=== PATIENT | male | born 1950 | race Hispanic/Latino ===

== ENCOUNTER → 2020-01-19 | Outpatient (CLI) | payer OTHER ==
[~2020-01-19] MED LIST: AMLO-258 PO; ASPI-1443 PO; CILO100T PO; CLOP75TA14 PO; COSO10OS OU; GLIP5TAB11 PO; INSU100V37 SQ; INSU3INS3 SQ; LATA2.5D15 OU; LOSA100T58 PO; SIMV-43 PO
== END | disposition home or self-care (01) ==
LOC: RAH 12:55
PROVIDERS: ATTEND Internal Medicine Cardiovascular Disease
DX: Z13.6 Encounter for screening for cardiovascular disorders (principal)
CPT/HCPCS: 75571

== ENCOUNTER → 2020-01-19 | Outpatient (CLI) | payer MEDICARE | END | disposition home or self-care (01) | LOC: SHCH 12:55 | PROVIDERS: ATTEND Internal Medicine Cardiovascular Disease | DX: R09.89 Other specified symptoms and signs involving the circulatory and respiratory systems (principal) | CPT/HCPCS: 93880; 93925 ==

== ENCOUNTER → 2020-01-20 | Outpatient (CLI) | payer MEDICARE ==
[~2020-01-20] MED LIST changes: -AMLO-258 PO; -ASPI-1443 PO; -INSU100V37 SQ
== END | disposition home or self-care (01) ==
LOC: SHCH 08:37
PROVIDERS: ATTEND Internal Medicine Cardiovascular Disease
DX: I11.9 Hypertensive heart disease without heart failure (principal); R01.1 Cardiac murmur, unspecified
CPT/HCPCS: 93306; 93356

== ENCOUNTER → 2020-02-11 | Outpatient (CLI) | payer MEDICARE ==
[~2020-02-11] MED LIST changes: +IOHEXOL-350 50ML VIAL IV ONE; +IOHEXOL-350 75 ML VIAL IV ONE
== END | disposition home or self-care (01) ==
LOC: RAH 07:50
PROVIDERS: ATTEND Internal Medicine Cardiovascular Disease
DX: I70.0 Atherosclerosis of aorta (principal); I70.209 Unspecified atherosclerosis of native arteries of extremities, unspecified extremity; N40.0 Benign prostatic hyperplasia without lower urinary tract symptoms; K57.30 Diverticulosis of large intestine without perforation or abscess without bleeding; M25.78 Osteophyte, vertebrae
CPT/HCPCS: 75635; Q9967 ×2

== ENCOUNTER 2020-07-04 09:47 | Day surgery (SDC) | payer MEDICARE ==
[2020-06-30 10:08] LABS: BASOPHILS % (AUTO) 0.8 % (0.0-5.0); HEMATOCRIT 43.8 % (42-54); LYMPHOCYTES % (AUTO) 21.8 % (21.0-51.0); MEAN CORPUSCULAR HEMOGLOBIN 30.6 pg (27.0-33.0); MEAN CORPUSCULAR HGB CONC 34.7 g/dL (32.0-36.0); MEAN CORPUSCULAR VOLUME 88.1 fL (79-99); MONOCYTES % (AUTO) 8.1 % (3.0-13.0); NEUTROPHILS % (AUTO) 64.7 % (40.0-77.0); PLATELET COUNT (AUTO) 200 K/uL (130-400); RED BLOOD CELL COUNT(AUTO) 4.97 MIL/uL (4.50-6.20); WHITE BLOOD COUNT (AUTO) 7.3 K/uL (4.8-10.8)
[2020-06-30 10:11] LABS: APPEARANCE,URINE Clear (CLEAR); BILIRUBIN,URINE Negative (NEGATIVE); COLOR,URINE Yellow (YELLOW); GLUCOSE, URINE (UA) 500 mg/dL (NEGATIVE); KETONES,URINE Negative (NEGATIVE); LEUKOCYTE ESTERASE ,URINE Negative (NEGATIVE); NITRATE,URINE Negative (NEGATIVE); OCCULT BLOOD,URINE Negative (NEGATIVE); PROTEIN,URINE Trace mg/dL (NEGATIVE)
[2020-06-30 10:17] LABS: CREATININE 0.8 mg/dL (0.5-1.5); POTASSIUM 3.3 mmol/L (3.5-5.1)
[2020-06-30 10:19] LABS: INR 0.92 (0.85-1.15); PARTIAL THROMBOPLASTIN TIME 27.3 SEC (26.3-35.5)
[2020-06-30 10:40] LABS: BACTERIA,URINE None Seen /HPF (None Seen); RBC,URINE 0-1 /HPF (0-1); WBC,URINE None Seen /HPF (0-1)
[2020-06-30 10:41] LABS: SQUAMOUS EPITHELIAL CELL,UR 0-2 /HPF (0-2)
--- NOTE | 2020-07-03 10:04 | NUR ---
LAB ABNORMAL K+ REPORTED TO BABITA MAYORGA, FURTHER ORDERS GIVEN AND WILL BE CARRIED OUT
[~2020-07-04] VITALS: Ht 163.8 cm; Wt 73.3 kg
[2020-07-04] VITALS (9 sets, daily range): BP systolic 106–149; BP diastolic 54–70
[~2020-07-04 09:47] MED LIST changes: +ACETAMINOPHEN 325 MG TAB PO PRN; +AMLO-258 PO; +ASPI-1443 PO; -COSO10OS OU; +INSU100V37 SQ; -INSU3INS3 SQ; -IOHEXOL-350 50ML VIAL IV ONE; -IOHEXOL-350 75 ML VIAL IV ONE; -LATA2.5D15 OU; +SODIUM CHLORIDE 0.9% 500ML 500 ML IV SCH
[2020-07-04 10:40] LABS: CREATININE 0.9 mg/dL (0.5-1.5); POTASSIUM 3.7 mmol/L (3.5-5.1)
[2020-07-04] MEDS ORDERED: SODIUM CHLORIDE 0.9% 1000ML 1,000 ML IV ONE (11:35)
[2020-07-04] MEDS ORDERED: IOHEXOL 350 MG/ML 100ML INFUS..BTL IV ONE (14:09)
[2020-07-04] MEDS ORDERED: SODIUM BICARB 50MEQ 50ML VIAL 50 ML ONE (14:09)
[2020-07-04] MEDS ORDERED: IOHEXOL-350 50ML VIAL IV ONE ×2 (14:09→15:01)
[2020-07-04] MEDS ORDERED: NITROGLYCERIN 2 MG/VIAL VIAL IV ONE (14:09)
[2020-07-04] MEDS ORDERED: IOHEXOL-350 75 ML VIAL IV ONE (14:09)
[2020-07-04] MEDS ORDERED: HEPARIN SODIUM 1000UNIT/ML 10ML VIAL ONE (14:09)
[2020-07-04] MEDS ORDERED: LIDOCAINE HCL 2% 20ML ONE (14:10)
[2020-07-04] MEDS ORDERED: MIDAZOLAM HCL 1 MG/ML 2ML VIAL ONE (14:10)
[2020-07-04] MEDS ORDERED: MEPERIDINE-PF 25 MG/ML SYG ONE (14:10)
[2020-07-04] MEDS ORDERED: DiphenhydrAMINE HCL 50 MG/ML VIAL ONE (15:16)
[2020-07-04] MEDS ORDERED: LABETALOL HCL 5 MG/ML 20ML VIAL IV ONE (15:22)
[2020-07-04] MEDS ORDERED: DEXTROSE 50%-WATER 50 ML DISP.SYRIN IV PRN (16:00)
[2020-07-04] MEDS ORDERED: SODIUM CHLORIDE 0.9% 1000ML 1,000 ML IV SCH (16:00)
[2020-07-04] MEDS ORDERED: GLUCAGON 1MG KIT 1 MG ML IM PRN (16:00)
[2020-07-04] MEDS ORDERED: INSULIN HUMULIN R 100 UNIT/ML 3ML SQ SCH (16:30)
--- NOTE | 2020-07-04 18:30 | NUR ---
Pt taken up to room 329. Report called to LAURIE Higgins from 3rd floor to give report. Pt awake, alert, and oriented upon arrival. Care rendered over to nurse at bedside. Pt resting comfortably, denies any pain or nausea. Site to right cath site remains, soft, non-tender, dressing clean dry and intact. Pt denies any further questions at this time. Discharge instructions given to pt prior to taking pt upstairs, pt reports understanding.
== END 2020-07-04 22:04 | disposition home or self-care (01) ==
LOC: DAH 09:47
PROVIDERS: ATTEND Internal Medicine Cardiovascular Disease
DX: I25.10 Atherosclerotic heart disease of native coronary artery without angina pectoris (principal); E11.51 Type 2 diabetes mellitus with diabetic peripheral angiopathy without gangrene; I10 Essential (primary) hypertension; E78.5 Hyperlipidemia, unspecified; F17.200 Nicotine dependence, unspecified, uncomplicated; Z79.82 Long term (current) use of aspirin; Z79.01 Long term (current) use of anticoagulants; Z79.899 Other long term (current) drug therapy
CPT/HCPCS: 36415 ×2; 71045; 80048 ×2; 81001; 82948 ×2; 85025; 85610; 85730; 93005; 93458; A4215; A4216; A4221; A4222; A4223 ×2; A4606; A4663; C1760; C1894; J1200; J1644; J1815; J3490 ×4; J7030; Q9965; Q9967 ×3; 99156; 99157; J2175; J2250

== ENCOUNTER → 2020-07-27 | Outpatient (CLI) | payer MEDICARE ==
[~2020-07-27] VITALS: Ht 165.1 cm; Wt 72.5 kg
[~2020-07-27] MED LIST changes: -ACETAMINOPHEN 325 MG TAB PO PRN; +ASPI-891 PO; +CEFUROXIME SODIUM 1.5 GM VIAL IVP SCH; +DORZ10DR10 OU; +FURO20TA6 PO; +LATA7.5D OU; +METO-408 PO; +METO25 PO; -SODIUM CHLORIDE 0.9% 500ML 500 ML IV SCH
[2020-07-27 12:39] LABS: BASOPHILS % (AUTO) 0.9 % (0.0-5.0); EOSINOPHILS % (AUTO) 4.1 % (0.0-8.0); HEMATOCRIT 49.1 % (42-54); LYMPHOCYTES % (AUTO) 22.8 % (21.0-51.0); MEAN CORPUSCULAR HEMOGLOBIN 30.3 pg (27.0-33.0); MEAN CORPUSCULAR HGB CONC 34.2 g/dL (32.0-36.0); MEAN CORPUSCULAR VOLUME 88.6 fL (79-99); MONOCYTES % (AUTO) 6.8 % (3.0-13.0); NEUTROPHILS % (AUTO) 64.7 % (40.0-77.0); PLATELET COUNT (AUTO) 211 K/uL (130-400); RED BLOOD CELL COUNT(AUTO) 5.54 MIL/uL (4.50-6.20); RED CELL DISTRIBUTION WIDTH 11.9 % (11.0-15.5); WHITE BLOOD COUNT (AUTO) 6.9 K/uL (4.8-10.8)
[2020-07-27 12:46] LABS: CREATININE 0.8 mg/dL (0.5-1.5); POTASSIUM 3.7 mmol/L (3.5-5.1)
[2020-07-27 13:21] LABS: INR 0.93 (0.85-1.15); PARTIAL THROMBOPLASTIN TIME 26.9 SEC (26.3-35.5); PROTHROMBIN TIME 10.1 SEC (9.6-11.6)
[2020-07-31 14:58] VITALS: BP 169/74
--- NOTE | 2020-07-31 15:03 | NUR ---
RE: ABNORMAL LABS INFORMED SHWETA GARSIA RN/DR SMITH REGARDING ABNORMAL LABS (HGB A1C 9.0, GLUCOSE 216). PER SHWETA, PATIENT IS NOT HAVING SURGERY TOMORROW.
== END | disposition home or self-care (01) ==
LOC: DAH 10:00 → EDSTATUS 08-16 11:00
PROVIDERS: ATTEND Thoracic Surgery (Cardiothoracic Vascular Surgery)
DX: Z01.818 Encounter for other preprocedural examination (principal); Z20.828 Contact with and (suspected) exposure to other viral communicable diseases; I65.21 Occlusion and stenosis of right carotid artery; I70.0 Atherosclerosis of aorta; Z79.899 Other long term (current) drug therapy
CPT/HCPCS: 36415; 71046; 80048; 83036; 85025; 85610; 85730; 86850; 86900; 86901; 93005; 93880; 94060; U0003; 94010

== ENCOUNTER 2020-08-11 14:00 | Inpatient (IN) | payer MEDICARE ==
[~2020-08-11] VITALS: Ht 162.6 cm; Wt 68.9 kg
[~2020-08-11 14:00] MED LIST changes: -ASPI-891 PO; -CEFUROXIME SODIUM 1.5 GM VIAL IVP SCH; -DORZ10DR10 OU; -FURO20TA6 PO; -LATA7.5D OU; -METO-408 PO; -METO25 PO
[2020-08-11 15:01] LABS: BASOPHILS % (AUTO) 0.9 % (0.0-5.0); EOSINOPHILS % (AUTO) 3.6 % (0.0-8.0); HEMATOCRIT 45.2 % (42-54); MEAN CORPUSCULAR HEMOGLOBIN 30.4 pg (27.0-33.0); MEAN CORPUSCULAR VOLUME 86.9 fL (79-99); MONOCYTES % (AUTO) 8.4 % (3.0-13.0); NEUTROPHILS % (AUTO) 62.7 % (40.0-77.0); PLATELET COUNT (AUTO) 206 K/uL (130-400); RED CELL DISTRIBUTION WIDTH 11.7 % (11.0-15.5); WHITE BLOOD COUNT (AUTO) 6.9 K/uL (4.8-10.8)
[2020-08-11 15:11] LABS: INR 0.93 (0.85-1.15); PARTIAL THROMBOPLASTIN TIME 26.3 SEC (26.3-35.5); PROTHROMBIN TIME 10.1 SEC (9.6-11.6)
[2020-08-11 15:14] LABS: ALBUMIN 3.9 g/dL (3.5-5.0); CREATININE 0.8 mg/dL (0.5-1.5); POTASSIUM 3.8 mmol/L (3.5-5.1); TOTAL PROTEIN, SERUM 8.5 g/dL (6.0-8.3)
[2020-08-11 15:17] LABS: HEMOGLOBIN A1C 8.7 % (4.0-6.0)
[2020-08-11 15:24] LABS: B-TYPE NATRIURETIC PEPTIDE 15 pg/mL (0-100)
[2020-08-15] MEDS ORDERED: LATA7.5D OU (11:01)
[2020-08-15] MEDS ORDERED: DORZ10DR10 OU (11:01)
[2020-08-15] MEDS ORDERED: METO-408 PO (11:20)
[2020-08-15 11:39] VITALS: BP 148/76
[2020-08-16] VITALS (11 sets, daily range): BP systolic 92–169; BP diastolic 45–84
[2020-08-16] MEDS ORDERED: SODIUM CHLORIDE 0.9% 1000ML 1,000 ML IV ONE ×2 (09:36→14:51)
[2020-08-16] MEDS ORDERED: NOREPINEPHRINE BITARTRATE 8 MG in DEXTROSE 5%-WATER 250 ML IV PRN (10:00)
[2020-08-16] MEDS ORDERED: EPINEPHRINE 10 MG in SODIUM CHLORIDE 0.9% 240 ML IV PRN (10:00)
[2020-08-16] MEDS ORDERED: AMINOCAPROIC ACID 15,000 MG in SODIUM CHLORIDE 0.9% 500ML 420 ML IV PRN (10:00)
[2020-08-16] MEDS ORDERED: NITROGLYCERIN 50 MG/D5% WATER 1 BOT ONE (10:05)
[2020-08-16] MEDS ORDERED: PAPAVERINE HCL 30 MG/ML 2ML VIAL ONE (10:06)
[2020-08-16] MEDS ORDERED: CEFAZOLIN SODIUM 1 GM VIAL ONE (10:06)
[2020-08-16] MEDS: CEFAZOLIN SODIUM 1 GM VIAL IVP SCH ×2 (10:15→12:00)
[2020-08-16] MEDS ORDERED: LIDOCAINE PF 2% 5ML ABBOJECT ONE (11:34)
[2020-08-16] MEDS ORDERED: PROTAMINE SULFATE 10 MG/ML 25ML VIAL IV ONE (11:34)
[2020-08-16] MEDS ORDERED: HEPARIN SODIUM 1000UNIT/ML 10ML VIAL ONE ×2 (11:34→13:01)
[2020-08-16] MEDS ORDERED: ESMOLOL HCL 10 MG/ML 10 ML VIAL ONE (11:34)
[2020-08-16] MEDS ORDERED: FENTANYL CITRATE PF 50 MCG/1 ML 20ML VIAL IJ ONE (11:35)
[2020-08-16] MEDS ORDERED: ROCURONIUM 10MG/1ML SYR 10 MG/ML ML ONE ×2 (11:35→13:41)
[2020-08-16] MEDS ORDERED: NOREPINEPHRINE BITARTRATE 1 MG/1 ML ML IV ONE (11:35)
[2020-08-16] MEDS ORDERED: AMINOCAPROIC ACID 250 MG/ML 20 ML VIAL ONE (11:35)
[2020-08-16] MEDS ORDERED: ETOMIDATE 2 MG/ML 10 ML VIAL ONE (11:35)
[2020-08-16] MEDS ORDERED: EPINEPHRINE 1 MG/ML AMPULE ONE (11:35)
[2020-08-16] MEDS ORDERED: SODIUM BICARB 50MEQ 50ML VIAL 100 ML ONE (11:35)
[2020-08-16] MEDS ORDERED: MIDAZOLAM HCL 1 MG/ML 2ML VIAL ONE (11:35)
[2020-08-16] MEDS ORDERED: VASOPRESSIN 20 UNITS/ML 1ML VIAL ONE (12:05)
[2020-08-16] MEDS ORDERED: AMIODARONE HCL 50 MG/ML 3 ML VIAL ONE (12:05)
[2020-08-16 12:41] LABS: ABG BASE EXCESS -6.4 mmol/L (-2.0-3.0); ABG HCO3 19.6 mmol/L (21.0-28.0); ABG OXYGEN SATURATION 99.3 % (95.0-99.0); ABG PCO2 41 mmHg (35-48)
[2020-08-16] MEDS ORDERED: SODIUM BICARB 50MEQ 50ML VIAL 200 ML ONE (12:45)
[2020-08-16] MEDS ORDERED: GLYCOPYRROLATE 1 MG/5 ML SYRINGE ONE (13:27)
[2020-08-16 13:32] LABS: ABG BASE EXCESS 0.6 mmol/L (-2.0-3.0); ABG PCO2 35 mmHg (35-48)
[2020-08-16] MEDS ORDERED: POTASSIUM CHLORIDE 20MEQ/100ML 300 ML IV ONE (13:33)
[2020-08-16] MEDS ORDERED: INSULIN HUMULIN R 100 UNIT/ML 3ML ONE (13:36)
[2020-08-16] MEDS ORDERED: SODIUM BICARB 8.4% 50ML SYRINGE ONE (13:57)
[2020-08-16] MEDS ORDERED: ALBUMIN (HUMAN) 5% 500 ML IV ONE (14:23)
[2020-08-16] MEDS ORDERED: PROTAMINE SULFATE 10 MG/ML 5 ML VIAL ONE ×2 (14:23→14:48)
[2020-08-16] MEDS ORDERED: NOREPINEPHRINE 4MG/NS 250ML 250 ML IV PRN (14:45)
[2020-08-16] MEDS ORDERED: ALBUMIN (HUMAN) 5% 250 ML IV PRN (14:45)
[2020-08-16] MEDS ORDERED: NITROGLYCERIN 50 MG/D5% WATER 250 BOT IV SCH (14:45)
[2020-08-16] MEDS ORDERED: ONDANSETRON HCL 4 MG/2 ML VIAL IV PRN (14:45)
[2020-08-16] MEDS ORDERED: AMINOCAPROIC ACID 15,000 MG in SODIUM CHLORIDE 0.9% 250 ML IV SCH (14:45)
[2020-08-16] MEDS ORDERED: SODIUM CHLORIDE 0.9% 500ML 500 ML IV SCH (14:45)
[2020-08-16] MEDS ORDERED: SODIUM BICARB 50MEQ 50ML VIAL IV PRN (14:45)
[2020-08-16] MEDS ORDERED: MORPHINE SULFATE 2 MG/ML 1ML SYG IV PRN (14:45)
[2020-08-16] MEDS ORDERED: SODIUM CHLORIDE 0.9% 10 ML VIAL IVP PRN (14:45)
[2020-08-16] MEDS ORDERED: SODIUM CHLORIDE 0.9% 1000ML 1,000 ML IV SCH (14:45)
[2020-08-16] MEDS ORDERED: PROPOFOL 1000 MG/100 ML 100 ML IV PRN (14:45)
[2020-08-16] MEDS ORDERED: CALCIUM GLUCONATE 1 GM in SODIUM CHLORIDE 0.9% 50 ML IV PRN (14:45)
[2020-08-16] MEDS ORDERED: EPINEPHRINE 2 MG in DEXTROSE 5%-WATER 250 ML IV PRN (14:45)
[2020-08-16] MEDS ORDERED: DEXTROSE 50%-WATER 50 ML DISP.SYRIN IV PRN (14:45)
[2020-08-16] MEDS ORDERED: POTASSIUM PHOS 15 mMOL+NS250ML 250 ML IV PRN (14:45)
[2020-08-16] MEDS ORDERED: GLUCAGON 1MG KIT 1 MG ML IM PRN (14:45)
[2020-08-16] MEDS ORDERED: ACETAMINOPHEN 650 MG SUPPOSITORY RC PRN (14:45)
[2020-08-16] MEDS ORDERED: MORPHINE SULFATE 4 MG/1ML SYG IV PRN (14:45)
[2020-08-16] MEDS ORDERED: ACETAMINOPHEN 325 MG TAB PO PRN (14:45)
[2020-08-16 14:48] LABS: ABG BASE EXCESS -1.3 mmol/L (-2.0-3.0); ABG HCO3 21.8 mmol/L (21.0-28.0); ABG OXYGEN SATURATION 98.9 % (95.0-99.0); ABG PCO2 32 mmHg (35-48)
[2020-08-16] MEDS: INSULIN REGULAR, HUMAN 3ML 100 UNIT in SODIUM CHLORIDE 0.9% 99 ML IV SCH ×2 (15:45)
[2020-08-16 15:49] LABS: ABG BASE EXCESS 0.3 mmol/L (-2.0-3.0); ABG HCO3 24.5 mmol/L (21.0-28.0); ABG OXYGEN SATURATION 98.4 % (95.0-99.0); ABG PCO2 38 mmHg (35-48)
[2020-08-16 15:51] LABS: MEAN CORPUSCULAR HEMOGLOBIN 30.8 pg (27.0-33.0); MEAN CORPUSCULAR HGB CONC 35.3 g/dL (32.0-36.0); MEAN CORPUSCULAR VOLUME 87.4 fL (79-99); RED BLOOD CELL COUNT(AUTO) 4.12 MIL/uL (4.50-6.20); RED CELL DISTRIBUTION WIDTH 11.9 % (11.0-15.5); WHITE BLOOD COUNT (AUTO) 18.7 K/uL (4.8-10.8)
[2020-08-16] MEDS: POTASSIUM CHLORIDE 20MEQ/100ML 100 ML IV PRN ×4 (15:53→22:15)
[2020-08-16 16:05] LABS: INR 1.07 (0.85-1.15); PARTIAL THROMBOPLASTIN TIME 20.5 SEC (26.3-35.5); PROTHROMBIN TIME 11.5 SEC (9.6-11.6)
[2020-08-16 16:07] LABS: CREATININE 0.8 mg/dL (0.5-1.5); MAGNESIUM 1.3 mg/dL (1.80-2.40); PHOSPHORUS 3.5 mg/dL (2.5-4.9); POTASSIUM 3.5 mmol/L (3.5-5.1)
[2020-08-16] MEDS: MAGNESIUM 2GM PREMIX 50ML 50 ML IV PRN (16:51)
[2020-08-16 17:03] LABS: ABG BASE EXCESS -2.8 mmol/L (-2.0-3.0); ABG HCO3 21.8 mmol/L (21.0-28.0); ABG OXYGEN SATURATION 97.9 % (95.0-99.0); ABG PCO2 37 mmHg (35-48)
[2020-08-16] MEDS: TRAMADOL HCL 50 MG TABLET PO PRN ×2 (17:24→23:52)
[2020-08-16 18:19] LABS: ABG BASE EXCESS -1.2 mmol/L (-2.0-3.0); ABG HCO3 24.4 mmol/L (21.0-28.0); ABG OXYGEN SATURATION 97.3 % (95.0-99.0); ABG PCO2 44 mmHg (35-48)
[2020-08-16] MEDS ORDERED: KETOROLAC TROMETHAMINE 15MG/ML IV SCH (18:45)
[2020-08-16] MEDS: CEFAZOLIN SODIUM 1 GM VIAL IV SCH (19:33)
[2020-08-16] MEDS ORDERED: SODIUM BICARB 50MEQ 50ML VIAL IV STA (19:34)
[2020-08-16] MEDS: CILOSTAZOL 100 MG TAB PO SCH (20:11)
[2020-08-16] MEDS: SIMVASTATIN 20 MG TABLET PO SCH (20:11)
[2020-08-16] MEDS: DORZOLAMIDE HCL/TIMOLOL MALEAT DROPS 10 ML BOTTLE OU SCH (20:12)
[2020-08-16] MEDS: LATANOPROST 2.5 ML DROPS OU SCH (20:16)
[2020-08-16] MEDS ORDERED: FAMOTIDINE/PF 20 MG/2 ML VIAL IV SCH (21:00)
[2020-08-16 21:10] LABS: ABG BASE EXCESS -0.1 mmol/L (-2.0-3.0); ABG HCO3 24.2 mmol/L (21.0-28.0); ABG OXYGEN SATURATION 98.1 % (95.0-99.0); ABG PCO2 38 mmHg (35-48)
[2020-08-17] VITALS (26 sets, daily range): BP systolic 100–145; BP diastolic 46–75
[2020-08-17] MEDS: CEFAZOLIN SODIUM 1 GM VIAL IV SCH ×2 (03:30→11:08)
[2020-08-17 04:13] LABS: ABG BASE EXCESS -0.1 mmol/L (-2.0-3.0); ABG HCO3 25.7 mmol/L (21.0-28.0); ABG OXYGEN SATURATION 97.7 % (95.0-99.0); ABG PCO2 46 mmHg (35-48)
[2020-08-17 04:59] LABS: HEMATOCRIT 33.7 % (42-54); MEAN CORPUSCULAR HEMOGLOBIN 30.1 pg (27.0-33.0); MEAN CORPUSCULAR HGB CONC 33.5 g/dL (32.0-36.0); MEAN CORPUSCULAR VOLUME 89.6 fL (79-99); RED BLOOD CELL COUNT(AUTO) 3.76 MIL/uL (4.50-6.20); RED CELL DISTRIBUTION WIDTH 12.2 % (11.0-15.5); WHITE BLOOD COUNT (AUTO) 9.5 K/uL (4.8-10.8)
[2020-08-17 05:09] LABS: INR 1.02 (0.85-1.15)
[2020-08-17 05:12] LABS: CREATININE 0.7 mg/dL (0.5-1.5); MAGNESIUM 1.6 mg/dL (1.80-2.40); PHOSPHORUS 4.4 mg/dL (2.5-4.9); POTASSIUM 4.1 mmol/L (3.5-5.1)
[2020-08-17] MEDS: MAGNESIUM 2GM PREMIX 50ML 50 ML IV PRN (05:34)
[2020-08-17] MEDS: FAMOTIDINE 20MG TAB 20 MG TAB PO SCH ×2 (09:51→20:26)
[2020-08-17] MEDS: CILOSTAZOL 100 MG TAB PO SCH ×2 (09:51→20:26)
[2020-08-17] MEDS: ASPIRIN 325MG EC TAB 325 MG TABLET.DR PO SCH (09:52)
[2020-08-17] MEDS: FUROSEMIDE 10 MG/ML 2ML VIAL IV SCH ×2 (09:53→20:29)
[2020-08-17] MEDS: DORZOLAMIDE HCL/TIMOLOL MALEAT DROPS 10 ML BOTTLE OU SCH ×2 (09:53→20:31)
[2020-08-17] MEDS: SIMVASTATIN 20 MG TABLET PO SCH (20:27)
[2020-08-17] MEDS: LATANOPROST 2.5 ML DROPS OU SCH (20:31)
[2020-08-17] MEDS: TRAMADOL HCL 50 MG TABLET PO PRN (20:48)
[2020-08-18] VITALS (15 sets, daily range): BP systolic 94–155; BP diastolic 37–81
[2020-08-18 04:45] LABS: CREATININE 0.7 mg/dL (0.5-1.5); POTASSIUM 3.5 mmol/L (3.5-5.1)
[2020-08-18 04:58] LABS: HEMATOCRIT 31.9 % (42-54); MEAN CORPUSCULAR HEMOGLOBIN 30.6 pg (27.0-33.0); MEAN CORPUSCULAR HGB CONC 33.9 g/dL (32.0-36.0); MEAN CORPUSCULAR VOLUME 90.4 fL (79-99); RED BLOOD CELL COUNT(AUTO) 3.53 MIL/uL (4.50-6.20); RED CELL DISTRIBUTION WIDTH 12.2 % (11.0-15.5); WHITE BLOOD COUNT (AUTO) 12.3 K/uL (4.8-10.8)
[2020-08-18] MEDS: INSULIN REGULAR, HUMAN 3ML 100 UNIT in SODIUM CHLORIDE 0.9% 99 ML IV SCH ×2 (05:14)
[2020-08-18] MEDS: TRAMADOL HCL 50 MG TABLET PO PRN ×2 (05:25→21:54)
[2020-08-18] MEDS: POTASSIUM CHLORIDE 20MEQ/100ML 100 ML IV PRN ×2 (06:22→09:02)
[2020-08-18] MEDS: FUROSEMIDE 20 MG TABLET PO SCH ×2 (08:18→16:43)
[2020-08-18] MEDS: DORZOLAMIDE HCL/TIMOLOL MALEAT DROPS 10 ML BOTTLE OU SCH ×2 (08:18→21:54)
[2020-08-18] MEDS: ASPIRIN 325MG EC TAB 325 MG TABLET.DR PO SCH (08:18)
[2020-08-18] MEDS: FAMOTIDINE 20MG TAB 20 MG TAB PO SCH ×2 (08:18→21:52)
[2020-08-18] MEDS: CILOSTAZOL 100 MG TAB PO SCH ×2 (08:22→21:52)
[2020-08-18] MEDS ORDERED: METOPROLOL TARTRATE 25 MG TAB PO SCH (09:00)
[2020-08-18] MEDS: LOSARTAN 50 MG TABLET PO SCH (13:35)
[2020-08-18] MEDS: INSULIN HUMULIN R 100 UNIT/ML 3ML SQ SCH ×2 (16:47→21:59)
[2020-08-18] MEDS: LATANOPROST 2.5 ML DROPS OU SCH (21:52)
[2020-08-18] MEDS: METOPROLOL TARTRATE 25 MG TAB PO SCH (21:55)
[2020-08-18] MEDS: SIMVASTATIN 20 MG TABLET PO SCH (21:55)
[2020-08-18] MEDS: ATORVASTATIN CALCIUM 20 MG TABLET PO SCH (21:55)
[2020-08-19] VITALS (7 sets, daily range): BP systolic 117–144; BP diastolic 49–78
[2020-08-19 04:12] LABS: MEAN CORPUSCULAR HEMOGLOBIN 30.1 pg (27.0-33.0); MEAN CORPUSCULAR HGB CONC 33.9 g/dL (32.0-36.0); MEAN CORPUSCULAR VOLUME 88.8 fL (79-99); RED BLOOD CELL COUNT(AUTO) 3.49 MIL/uL (4.50-6.20); RED CELL DISTRIBUTION WIDTH 11.8 % (11.0-15.5); WHITE BLOOD COUNT (AUTO) 11.1 K/uL (4.8-10.8)
[2020-08-19 04:25] LABS: CREATININE 0.8 mg/dL (0.5-1.5); MAGNESIUM 2.2 mg/dL (1.80-2.40); POTASSIUM 3.7 mmol/L (3.5-5.1)
[2020-08-19] MEDS ORDERED: LIDOCAINE HCL-MPF 2% 5ML VIAL IM SCH (07:30)
[2020-08-19] MEDS: INSULIN HUMULIN R 100 UNIT/ML 3ML SQ SCH ×4 (07:30→20:50)
[2020-08-19] MEDS: ENOXAPARIN SODIUM 30 MG/0.3 ML SQ SCH (09:00)
[2020-08-19] MEDS: DORZOLAMIDE HCL/TIMOLOL MALEAT DROPS 10 ML BOTTLE OU SCH ×2 (09:00→20:56)
[2020-08-19] MEDS: ASPIRIN 325MG EC TAB 325 MG TABLET.DR PO SCH (09:57)
[2020-08-19] MEDS: CILOSTAZOL 100 MG TAB PO SCH ×2 (09:57→20:48)
[2020-08-19] MEDS: FUROSEMIDE 20 MG TABLET PO SCH ×2 (09:58→17:19)
[2020-08-19] MEDS: METOPROLOL TARTRATE 25 MG TAB PO SCH ×2 (09:58→20:48)
[2020-08-19] MEDS: LOSARTAN 50 MG TABLET PO SCH (09:58)
[2020-08-19] MEDS: FAMOTIDINE 20MG TAB 20 MG TAB PO SCH ×2 (09:59→20:48)
[2020-08-19] MEDS: SIMVASTATIN 20 MG TABLET PO SCH (20:48)
[2020-08-19] MEDS: ATORVASTATIN CALCIUM 20 MG TABLET PO SCH (20:48)
[2020-08-19] MEDS: LATANOPROST 2.5 ML DROPS OU SCH (20:56)
[2020-08-20 04:16] VITALS: BP 112/56
[2020-08-20 05:59] LABS: MEAN CORPUSCULAR HEMOGLOBIN 30.5 pg (27.0-33.0); MEAN CORPUSCULAR HGB CONC 34.4 g/dL (32.0-36.0); MEAN CORPUSCULAR VOLUME 88.6 fL (79-99); RED BLOOD CELL COUNT(AUTO) 3.61 MIL/uL (4.50-6.20); RED CELL DISTRIBUTION WIDTH 11.6 % (11.0-15.5); WHITE BLOOD COUNT (AUTO) 7.7 K/uL (4.8-10.8)
[2020-08-20 06:09] LABS: CREATININE 0.8 mg/dL (0.5-1.5); POTASSIUM 3.3 mmol/L (3.5-5.1)
[2020-08-20] MEDS: INSULIN HUMULIN R 100 UNIT/ML 3ML SQ SCH ×4 (06:16→20:47)
[2020-08-20] MEDS: ASPIRIN 325MG EC TAB 325 MG TABLET.DR PO SCH (07:31)
[2020-08-20] MEDS: FUROSEMIDE 20 MG TABLET PO SCH ×2 (07:31→16:09)
[2020-08-20] MEDS: CILOSTAZOL 100 MG TAB PO SCH ×2 (07:31→20:44)
[2020-08-20] MEDS: METOPROLOL TARTRATE 25 MG TAB PO SCH ×2 (07:32→20:44)
[2020-08-20] MEDS: LOSARTAN 50 MG TABLET PO SCH (07:32)
[2020-08-20] MEDS: FAMOTIDINE 20MG TAB 20 MG TAB PO SCH ×2 (07:32→20:44)
[2020-08-20] MEDS: ENOXAPARIN SODIUM 30 MG/0.3 ML SQ SCH (07:39)
[2020-08-20 07:55] VITALS: BP 124/62
[2020-08-20] MEDS: DORZOLAMIDE HCL/TIMOLOL MALEAT DROPS 10 ML BOTTLE OU SCH ×2 (09:00→20:54)
[2020-08-20 11:27] VITALS: BP 103/54
[2020-08-20] MEDS ORDERED: POTASSIUM CHLORIDE 20MEQ/100ML 100 ML IV PRN (12:15)
[2020-08-20] MEDS ORDERED: POTASSIUM CHLORIDE 10% ELIXIR 20 MEQ/15 ML UDCUP PO PRN (12:15)
[2020-08-20] MEDS ORDERED: LIDOCAINE HCL-MPF 1% 2ML VIAL IV PRN (12:15)
[2020-08-20 16:00] VITALS: BP 119/67
[2020-08-20] MEDS: POTASSIUM CHLORIDE 20 MEQ ERTAB PO PRN (18:53)
[2020-08-20 19:07] VITALS: BP 123/69
[2020-08-20] MEDS: ATORVASTATIN CALCIUM 20 MG TABLET PO SCH (20:44)
[2020-08-20] MEDS: SIMVASTATIN 20 MG TABLET PO SCH (20:44)
[2020-08-20] MEDS: LATANOPROST 2.5 ML DROPS OU SCH (20:55)
[2020-08-20 23:26] VITALS: BP 134/63
[2020-08-21 03:28] VITALS: BP 150/69
[2020-08-21] MEDS: INSULIN HUMULIN R 100 UNIT/ML 3ML SQ SCH ×4 (06:18→22:29)
[2020-08-21] MEDS: POTASSIUM CHLORIDE 20 MEQ ERTAB PO PRN ×2 (06:21→08:29)
[2020-08-21 08:00] VITALS: BP 116/63
[2020-08-21] MEDS: FAMOTIDINE 20MG TAB 20 MG TAB PO SCH ×2 (08:26→22:21)
[2020-08-21] MEDS: ASPIRIN 325MG EC TAB 325 MG TABLET.DR PO SCH (08:26)
[2020-08-21] MEDS: LOSARTAN 50 MG TABLET PO SCH (08:26)
[2020-08-21] MEDS: CILOSTAZOL 100 MG TAB PO SCH ×2 (08:27→22:21)
[2020-08-21] MEDS: FUROSEMIDE 20 MG TABLET PO SCH ×2 (08:27→17:02)
[2020-08-21] MEDS: METOPROLOL TARTRATE 25 MG TAB PO SCH ×2 (08:27→22:21)
[2020-08-21] MEDS: ENOXAPARIN SODIUM 30 MG/0.3 ML SQ SCH (08:28)
[2020-08-21] MEDS: DORZOLAMIDE HCL/TIMOLOL MALEAT DROPS 10 ML BOTTLE OU SCH ×3 (09:00→22:17)
[2020-08-21 12:00] VITALS: BP 119/65
[2020-08-21 16:00] VITALS: BP 114/62
[2020-08-21 19:51] VITALS: BP 147/62
[2020-08-21] MEDS: LATANOPROST 2.5 ML DROPS OU SCH (22:17)
[2020-08-21] MEDS: SIMVASTATIN 20 MG TABLET PO SCH (22:21)
[2020-08-21] MEDS: ATORVASTATIN CALCIUM 20 MG TABLET PO SCH (22:21)
[2020-08-21 23:41] VITALS: BP 151/75
[2020-08-22 03:58] VITALS: BP 122/59
[2020-08-22] MEDS: INSULIN HUMULIN R 100 UNIT/ML 3ML SQ SCH ×4 (05:37→21:36)
[2020-08-22 08:30] VITALS: BP 130/71
[2020-08-22] MEDS: FAMOTIDINE 20MG TAB 20 MG TAB PO SCH ×2 (08:51→21:14)
[2020-08-22] MEDS: METOPROLOL TARTRATE 25 MG TAB PO SCH ×2 (08:52→21:14)
[2020-08-22] MEDS: CILOSTAZOL 100 MG TAB PO SCH ×2 (08:52→21:14)
[2020-08-22] MEDS: ASPIRIN 325MG EC TAB 325 MG TABLET.DR PO SCH (08:52)
[2020-08-22] MEDS: FUROSEMIDE 20 MG TABLET PO SCH ×2 (08:52→17:07)
[2020-08-22] MEDS: LOSARTAN 50 MG TABLET PO SCH (08:52)
[2020-08-22] MEDS: ENOXAPARIN SODIUM 30 MG/0.3 ML SQ SCH (08:53)
[2020-08-22] MEDS: POTASSIUM CHLORIDE 20 MEQ ERTAB PO PRN (08:55)
[2020-08-22] MEDS: DORZOLAMIDE HCL/TIMOLOL MALEAT DROPS 10 ML BOTTLE OU SCH ×2 (09:10→21:12)
[2020-08-22 12:14] VITALS: BP 91/72
[2020-08-22 16:30] VITALS: BP 122/73
[2020-08-22] MEDS ORDERED: MIDAZOLAM HCL 1 MG/ML 2ML VIAL IVP SCH (18:00)
[2020-08-22] MEDS ORDERED: MORPHINE SULFATE 2 MG/ML 1ML SYG ONE (18:16)
[2020-08-22] MEDS ORDERED: MORPHINE SULFATE 2 MG/ML 1ML SYG IVP SCH (18:30)
[2020-08-22 19:14] VITALS: BP 119/77
[2020-08-22] MEDS: LATANOPROST 2.5 ML DROPS OU SCH (21:12)
[2020-08-22] MEDS: ATORVASTATIN CALCIUM 20 MG TABLET PO SCH (21:14)
[2020-08-22] MEDS: SIMVASTATIN 20 MG TABLET PO SCH (21:14)
[2020-08-23] VITALS (7 sets, daily range): BP systolic 97–133; BP diastolic 62–81
[2020-08-23] MEDS: INSULIN HUMULIN R 100 UNIT/ML 3ML SQ SCH ×4 (05:57→21:13)
[2020-08-23 06:11] LABS: HEMATOCRIT 34.9 % (42-54); MEAN CORPUSCULAR HEMOGLOBIN 30.3 pg (27.0-33.0); MEAN CORPUSCULAR HGB CONC 33.8 g/dL (32.0-36.0); MEAN CORPUSCULAR VOLUME 89.7 fL (79-99); RED BLOOD CELL COUNT(AUTO) 3.89 MIL/uL (4.50-6.20); RED CELL DISTRIBUTION WIDTH 12.2 % (11.0-15.5); WHITE BLOOD COUNT (AUTO) 9.1 K/uL (4.8-10.8)
[2020-08-23 06:23] LABS: CREATININE 0.9 mg/dL (0.5-1.5); POTASSIUM 3.8 mmol/L (3.5-5.1)
[2020-08-23] MEDS: FAMOTIDINE 20MG TAB 20 MG TAB PO SCH ×2 (09:31→20:55)
[2020-08-23] MEDS: LOSARTAN 50 MG TABLET PO SCH (09:31)
[2020-08-23] MEDS: CILOSTAZOL 100 MG TAB PO SCH ×2 (09:32→20:56)
[2020-08-23] MEDS: ASPIRIN 325MG EC TAB 325 MG TABLET.DR PO SCH (09:32)
[2020-08-23] MEDS: METOPROLOL TARTRATE 25 MG TAB PO SCH ×2 (09:32→20:56)
[2020-08-23] MEDS: FUROSEMIDE 20 MG TABLET PO SCH ×2 (09:32→16:48)
[2020-08-23] MEDS: ENOXAPARIN SODIUM 30 MG/0.3 ML SQ SCH (09:33)
[2020-08-23] MEDS: DORZOLAMIDE HCL/TIMOLOL MALEAT DROPS 10 ML BOTTLE OU SCH ×2 (09:38→20:55)
[2020-08-23] MEDS: LATANOPROST 2.5 ML DROPS OU SCH (20:55)
[2020-08-23] MEDS: ATORVASTATIN CALCIUM 20 MG TABLET PO SCH (20:55)
[2020-08-24 03:29] VITALS: BP 107/66
[2020-08-24] MEDS: INSULIN HUMULIN R 100 UNIT/ML 3ML SQ SCH ×4 (06:56→21:54)
[2020-08-24 07:57] VITALS: BP 132/63
[2020-08-24] MEDS: DORZOLAMIDE HCL/TIMOLOL MALEAT DROPS 10 ML BOTTLE OU SCH ×2 (09:00→21:50)
[2020-08-24] MEDS: CILOSTAZOL 100 MG TAB PO SCH ×2 (09:47→21:50)
[2020-08-24] MEDS: FAMOTIDINE 20MG TAB 20 MG TAB PO SCH ×2 (09:47→21:50)
[2020-08-24] MEDS: FUROSEMIDE 20 MG TABLET PO SCH ×2 (09:47→17:15)
[2020-08-24] MEDS: METOPROLOL TARTRATE 25 MG TAB PO SCH ×2 (09:48→21:50)
[2020-08-24] MEDS: ASPIRIN 325MG EC TAB 325 MG TABLET.DR PO SCH (09:48)
[2020-08-24] MEDS: ENOXAPARIN SODIUM 30 MG/0.3 ML SQ SCH (09:51)
[2020-08-24 11:49] VITALS: BP 122/66
[2020-08-24 15:24] VITALS: BP 102/61
[2020-08-24 20:12] VITALS: BP 121/72
[2020-08-24] MEDS: LATANOPROST 2.5 ML DROPS OU SCH (21:50)
[2020-08-24] MEDS: ATORVASTATIN CALCIUM 20 MG TABLET PO SCH (21:50)
[2020-08-24 23:13] VITALS: BP 110/64
[2020-08-25 03:15] VITALS: BP 138/77
[2020-08-25] MEDS: INSULIN HUMULIN R 100 UNIT/ML 3ML SQ SCH ×4 (05:09→23:21)
[2020-08-25 08:55] VITALS: BP 117/68
[2020-08-25] MEDS: FAMOTIDINE 20MG TAB 20 MG TAB PO SCH ×2 (11:31→23:16)
[2020-08-25] MEDS: ASPIRIN 325MG EC TAB 325 MG TABLET.DR PO SCH (11:31)
[2020-08-25] MEDS: CILOSTAZOL 100 MG TAB PO SCH ×2 (11:32→23:15)
[2020-08-25] MEDS: FUROSEMIDE 20 MG TABLET PO SCH ×2 (11:32→18:00)
[2020-08-25] MEDS: ENOXAPARIN SODIUM 30 MG/0.3 ML SQ SCH (11:32)
[2020-08-25] MEDS: METOPROLOL TARTRATE 25 MG TAB PO SCH (11:32)
[2020-08-25] MEDS: DORZOLAMIDE HCL/TIMOLOL MALEAT DROPS 10 ML BOTTLE OU SCH ×2 (11:34→23:25)
[2020-08-25 14:54] VITALS: BP 140/80
[2020-08-25 16:00] VITALS: BP 109/71
[2020-08-25 19:51] VITALS: BP 104/68
[2020-08-25] MEDS: LATANOPROST 2.5 ML DROPS OU SCH (21:00)
[2020-08-25] MEDS: ATORVASTATIN CALCIUM 20 MG TABLET PO SCH (23:16)
[2020-08-25 23:54] VITALS: BP 133/63
[2020-08-26] MEDS: METOPROLOL TARTRATE 25 MG TAB PO SCH ×3 (00:04→20:14)
[2020-08-26 03:33] VITALS: BP 121/64
[2020-08-26] MEDS: INSULIN HUMULIN R 100 UNIT/ML 3ML SQ SCH ×4 (06:47→20:15)
[2020-08-26 07:57] VITALS: BP 120/58
[2020-08-26] MEDS: FAMOTIDINE 20MG TAB 20 MG TAB PO SCH ×2 (10:08→20:14)
[2020-08-26] MEDS: CILOSTAZOL 100 MG TAB PO SCH ×2 (10:08→20:14)
[2020-08-26] MEDS: FUROSEMIDE 20 MG TABLET PO SCH ×2 (10:09→17:45)
[2020-08-26] MEDS: ASPIRIN 325MG EC TAB 325 MG TABLET.DR PO SCH (10:09)
[2020-08-26] MEDS: ENOXAPARIN SODIUM 30 MG/0.3 ML SQ SCH (10:11)
[2020-08-26] MEDS: DORZOLAMIDE HCL/TIMOLOL MALEAT DROPS 10 ML BOTTLE OU SCH ×2 (10:12→20:14)
[2020-08-26 11:41] VITALS: BP 118/64
[2020-08-26 16:00] VITALS: BP 116/63
[2020-08-26 20:00] VITALS: BP 158/53
[2020-08-26] MEDS: LATANOPROST 2.5 ML DROPS OU SCH (20:14)
[2020-08-26] MEDS: ATORVASTATIN CALCIUM 20 MG TABLET PO SCH (20:14)
[2020-08-26 23:31] VITALS: BP 128/78
[2020-08-27 05:26] LABS: BASOPHILS % (AUTO) 0.7 % (0.0-5.0); EOSINOPHILS % (AUTO) 4.7 % (0.0-8.0); HEMATOCRIT 33.5 % (42-54); LYMPHOCYTES % (AUTO) 21.1 % (21.0-51.0); MEAN CORPUSCULAR HEMOGLOBIN 30.1 pg (27.0-33.0); MEAN CORPUSCULAR HGB CONC 33.4 g/dL (32.0-36.0); MEAN CORPUSCULAR VOLUME 90.1 fL (79-99); MONOCYTES % (AUTO) 8.1 % (3.0-13.0); NEUTROPHILS % (AUTO) 63.5 % (40.0-77.0); PLATELET COUNT (AUTO) 361 K/uL (130-400); RED BLOOD CELL COUNT(AUTO) 3.72 MIL/uL (4.50-6.20); RED CELL DISTRIBUTION WIDTH 12.6 % (11.0-15.5); WHITE BLOOD COUNT (AUTO) 8.5 K/uL (4.8-10.8)
[2020-08-27] MEDS: INSULIN HUMULIN R 100 UNIT/ML 3ML SQ SCH ×3 (05:40→17:40)
[2020-08-27 05:41] LABS: CREATININE 0.8 mg/dL (0.5-1.5); POTASSIUM 3.7 mmol/L (3.5-5.1)
[2020-08-27] MEDS: POTASSIUM CHLORIDE 20 MEQ ERTAB PO PRN ×2 (06:07→17:39)
[2020-08-27 07:55] VITALS: BP 121/54
[2020-08-27] MEDS: METOPROLOL TARTRATE 25 MG TAB PO SCH ×2 (09:25→21:36)
[2020-08-27] MEDS: FAMOTIDINE 20MG TAB 20 MG TAB PO SCH ×2 (09:25→21:22)
[2020-08-27] MEDS: ASPIRIN 325MG EC TAB 325 MG TABLET.DR PO SCH (09:26)
[2020-08-27] MEDS: FUROSEMIDE 20 MG TABLET PO SCH ×2 (09:26→17:38)
[2020-08-27] MEDS: CILOSTAZOL 100 MG TAB PO SCH ×2 (09:26→21:22)
[2020-08-27] MEDS: DORZOLAMIDE HCL/TIMOLOL MALEAT DROPS 10 ML BOTTLE OU SCH ×2 (09:27→21:26)
[2020-08-27] MEDS: ENOXAPARIN SODIUM 30 MG/0.3 ML SQ SCH (09:27)
[2020-08-27 11:47] VITALS: BP 114/65
[2020-08-27 16:26] VITALS: BP 106/67
[2020-08-27 20:00] VITALS: BP 114/74
[2020-08-27] MEDS: ATORVASTATIN CALCIUM 20 MG TABLET PO SCH (21:22)
[2020-08-27] MEDS: LATANOPROST 2.5 ML DROPS OU SCH (21:26)
[2020-08-28] VITALS: BP 102/68
[2020-08-28 04:00] VITALS: BP 141/76
[2020-08-28 06:34] LABS: HEMATOCRIT 34.6 % (42-54); MEAN CORPUSCULAR HGB CONC 33.2 g/dL (32.0-36.0); MEAN CORPUSCULAR VOLUME 90.3 fL (79-99); RED BLOOD CELL COUNT(AUTO) 3.83 MIL/uL (4.50-6.20); WHITE BLOOD COUNT (AUTO) 8.3 K/uL (4.8-10.8)
[2020-08-28 06:41] LABS: CREATININE 0.8 mg/dL (0.5-1.5); POTASSIUM 3.9 mmol/L (3.5-5.1)
[2020-08-28] MEDS: INSULIN HUMULIN R 100 UNIT/ML 3ML SQ SCH ×2 (06:50→13:23)
[2020-08-28 07:00] VITALS: BP 115/69
[2020-08-28 11:00] VITALS: BP 110/76
[2020-08-28] MEDS: METOPROLOL TARTRATE 25 MG TAB PO SCH (11:17)
[2020-08-28] MEDS: ASPIRIN 325MG EC TAB 325 MG TABLET.DR PO SCH (11:17)
[2020-08-28] MEDS: CILOSTAZOL 100 MG TAB PO SCH (11:17)
[2020-08-28] MEDS: FUROSEMIDE 20 MG TABLET PO SCH (11:17)
[2020-08-28] MEDS: FAMOTIDINE 20MG TAB 20 MG TAB PO SCH (11:17)
[2020-08-28] MEDS: ENOXAPARIN SODIUM 30 MG/0.3 ML SQ SCH (11:18)
[2020-08-28] MEDS ORDERED: ASPI-891 PO (15:57)
[2020-08-28] MEDS ORDERED: FURO20TA6 PO (15:57)
[2020-08-28] MEDS ORDERED: METO25 PO (15:57)
[2020-08-28 16:00] VITALS: BP 141/66
== END 2020-08-28 19:30 | disposition home or self-care (01) | DRG 235 ==
LOC: DAHIP 08-16 09:27 → 2CH 08-16 13:44 → 4DH 08-19 04:25
PROVIDERS: ADMIT Thoracic Surgery (Cardiothoracic Vascular Surgery); ATTEND Thoracic Surgery (Cardiothoracic Vascular Surgery)
PROC: 06BQ4ZZ Excision of Left Saphenous Vein, Percutaneous Endoscopic Approach (ICD-10-PCS; 2020-08-16)
PROC: 05HY33Z Insertion of Infusion Device into Upper Vein, Percutaneous Approach (ICD-10-PCS; 2020-08-16)
PROC: 02100Z9 Bypass Coronary Artery, One Artery from Left Internal Mammary, Open Approach (ICD-10-PCS; principal; 2020-08-16 11:40)
PROC: 021209W Bypass Coronary Artery, Three Arteries from Aorta with Autologous Venous Tissue, Open Approach (ICD-10-PCS; 2020-08-16 11:40)
PROC: 0W9B30Z Drainage of Left Pleural Cavity with Drainage Device, Percutaneous Approach (ICD-10-PCS; 2020-08-19)
PROC: 0W9B30Z Drainage of Left Pleural Cavity with Drainage Device, Percutaneous Approach (ICD-10-PCS; 2020-08-22)
DX: I25.10 Atherosclerotic heart disease of native coronary artery without angina pectoris (principal); J95.1 Acute pulmonary insufficiency following thoracic surgery; T81.83XA Persistent postprocedural fistula, initial encounter; J95.811 Postprocedural pneumothorax; J95.812 Postprocedural air leak; E87.70 Fluid overload, unspecified; Y83.2 Surgical operation with anastomosis, bypass or graft as the cause of abnormal reaction of the patient, or of later complication, without mention of misadventure at the time of the procedure; E87.6 Hypokalemia; Z20.828 Contact with and (suspected) exposure to other viral communicable diseases; E11.51 Type 2 diabetes mellitus with diabetic peripheral angiopathy without gangrene; E78.00 Pure hypercholesterolemia, unspecified; E78.5 Hyperlipidemia, unspecified; H54.61 Unqualified visual loss, right eye, normal vision left eye; I25.5 Ischemic cardiomyopathy; I11.9 Hypertensive heart disease without heart failure; L40.9 Psoriasis, unspecified; I65.23 Occlusion and stenosis of bilateral carotid arteries; I25.2 Old myocardial infarction; Z79.82 Long term (current) use of aspirin; Z79.899 Other long term (current) drug therapy; Z87.891 Personal history of nicotine dependence
CPT/HCPCS: 36415; 71045; 80048; 80053; 80061; 82435; 82803; 82947; 82948; 83036; 83605; 83735; 83880; 84100; 84132; 84295; 85018; 85025; 85027; 85610; 85730; 86850; 86900; 86901; 86923; 93005; 94002; 94010; 94150; 97039; A7048; G0378; J0171; J0282; J0690; J1644; J1650; J1815; J1885; J1940; J2001; J2250; J2270; J2405; J2440; J2720; J3010; J3475; J3480; J3490; J7030; J7040; P9045; U0003

== ENCOUNTER → 2021-01-22 | Outpatient (CLI) | payer MEDICARE ==
[~2021-01-22] MED LIST changes: -AMLO-258 PO; -ASPI-1443 PO; +ASPI-891 PO; +DORZ10DR10 OU; +FURO20TA6 PO; +LATA7.5D OU; -LOSA100T58 PO; +METO25 PO
== END | disposition home or self-care (01) ==
LOC: SHCH 11:14
PROVIDERS: ATTEND Internal Medicine Cardiovascular Disease
DX: I25.10 Atherosclerotic heart disease of native coronary artery without angina pectoris (principal)
CPT/HCPCS: 93880

== ENCOUNTER → 2022-10-28 | Outpatient (CLI) | payer MEDICARE ==
[~2022-10-28] MED LIST changes: +ASPI-1197 PO; -ASPI-891 PO; -CILO100T PO; -CLOP75TA14 PO; -DORZ10DR10 OU; -FURO20TA6 PO; -GLIP5TAB11 PO; -INSU100V37 SQ; -SIMV-43 PO
[2022-10-28 12:08] LABS: BASOPHILS % (AUTO) 0.7 % (0.0-5.0); EOSINOPHILS % (AUTO) 2.8 % (0.0-8.0); HEMATOCRIT 22.5 % (42-54); LYMPHOCYTES % (AUTO) 25.5 % (21.0-51.0); MEAN CORPUSCULAR HEMOGLOBIN 15.4 pg (27.0-33.0); MEAN CORPUSCULAR HGB CONC 24.9 g/dL (32.0-36.0); MONOCYTES % (AUTO) 6.8 % (3.0-13.0); NEUTROPHILS % (AUTO) 63.8 % (40.0-77.0); PLATELET COUNT (AUTO) 395 K/uL (130-400); RED BLOOD CELL COUNT(AUTO) 3.63 MIL/uL (4.50-6.20); RED CELL DISTRIBUTION WIDTH 21.8 % (11.0-15.5); WHITE BLOOD COUNT (AUTO) 5.4 K/uL (4.8-10.8)
[2022-10-28 12:17] LABS: CREATININE 0.7 mg/dL (0.5-1.5); POTASSIUM 4.1 mmol/L (3.5-5.1)
[2022-10-28 12:28] LABS: PROTHROMBIN TIME 10.9 SEC (9.6-11.6)
[2022-10-28 12:29] LABS: PARTIAL THROMBOPLASTIN TIME 25.4 SEC (26.3-35.5)
== END | disposition home or self-care (01) ==
LOC: LAB 10:03
PROVIDERS: ATTEND Internal Medicine Cardiovascular Disease
DX: I10 Essential (primary) hypertension (principal); I73.9 Peripheral vascular disease, unspecified
CPT/HCPCS: 36415; 80048; 85025; 85060; 85610; 85730